=== PATIENT | female | born 2000 | race Caucasian/White ===

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

== ENCOUNTER 2019-04-21 14:36 | Inpatient (IN) ==
[2019-04-21] MEDS ORDERED: BUTORPHANOL TARTRATE 2 MG/1 ML VIAL IVP PRN ×2 (14:46→20:48)
[2019-04-21] MEDS ORDERED: fentaNYL Inj 100 MCG/2 ML VIAL IV PRN (14:46)
[2019-04-21] MEDS ORDERED: Lidocaine 1% 10 MG/ML - 20 ML VIAL SUBCUT PRN (14:46)
[2019-04-21] MEDS ORDERED: Metoclopramide Inj 10 MG/2 ML VIAL IV PRN (14:46)
[2019-04-21] MEDS ORDERED: METHYLERGONOVINE MALEATE 0.2 MG/1 ML VIAL IM PRN (14:46)
[2019-04-21] MEDS ORDERED: OXYTOCIN 10 UNIT/1 ML IM PRN (14:46)
[2019-04-21] MEDS ORDERED: TERBUTALINE SULFATE 1 MG/1 ML SDV SUBCUT PRN (14:46)
[2019-04-21] MEDS ORDERED: CefOXitin Inj 2 GM in Sodium Chloride 0.9% 100 ML IV PRN (14:46)
[2019-04-21] MEDS ORDERED: CITRIC ACID/SODIUM CITRATE 30 ML CUP PO PRN (14:46)
[2019-04-21] MEDS ORDERED: LIDOCAINE HCL 2 % 10 ML JELLY URO-JECT TOPICAL PRN ×2 (14:46→19:55)
[2019-04-21] MEDS ORDERED: Nalbuphine Inj 20 MG/ML Ampule IVP PRN ×2 (14:46→19:55)
[2019-04-21] MEDS ORDERED: FAMOTIDINE 20 MG/2 ML VIAL IVP PRN ×2 (14:46)
[2019-04-21] MEDS ORDERED: LIDOCAINE W/ SODIUM BICARB 0.5 ML SYR SUBD PRN (14:46)
[2019-04-21] MEDS ORDERED: MISOPROSTOL 200 MCG TABLET RECTAL PRN (14:46)
[2019-04-21] MEDS ORDERED: Phenylephrine Inj 50 MCG in Sodium Chloride 0.9% vial 0.5 ML IVP PRN (14:46)
[2019-04-21] MEDS ORDERED: NALOXONE 0.4 MG/1 ML VIAL IVP PRN (14:46)
[2019-04-21] MEDS ORDERED: diphenhydrAMINE 50 MG/1 ML VIAL IVP PRN ×2 (14:46→19:55)
[2019-04-21] MEDS ORDERED: CALCIUM CARBONATE 500 MG (TUMS) CHEWABLE TABLET PO PRN ×2 (14:46→19:55)
[2019-04-21] MEDS ORDERED: Naloxone Inj 0.01 MG in Sodium Chloride 0.9% vial 1 ML IVP PRN (14:46)
[2019-04-21] MEDS ORDERED: ONDANSETRON 4 MG/2 ML VIAL IVP PRN ×2 (14:46→19:55)
[2019-04-21] MEDS ORDERED: Carboprost Inj 250 MCG/ML AMP IM PRN (14:46)
[2019-04-21] MEDS ORDERED: Oxytocin 20 Units + LR 20 UNIT/1,000 ML BAG IV SCH ×2 (15:00→19:55)
[2019-04-21] MEDS ORDERED: LIDOCAINE MPF 2% - 5 ML (20 MG/1 ML) ONE (15:33)
[2019-04-21 15:36] LABS: Hematocrit [HCT] 38.4 % (37.0-47.0); MEAN CORPUSCULAR HGB CONC 33.9 g/dL (33-37); MEAN CORPUSCULAR VOLUME 79.7 FL (81-99); RED BLOOD COUNT 4.82 10^6/uL (4.20-5.40)
[2019-04-21] MEDS: Lactated Ringers-OB Dept 1,000 ML PRIMARY IV SCH ×2 (15:36→16:01)
[2019-04-21] MEDS ORDERED: Fent/Bupiv 2mcg/0.0625% Epid 250 ML ONE (15:43)
[2019-04-21] MEDS ORDERED: Tranexamic Acid 1,000 MG in Sodium Chloride 0.9% 100 ML IV ONE (19:30)
[2019-04-21] MEDS ORDERED: Tranexamic Acid 1,000 MG in Sodium Chloride 0.9% 100 ML IV SCH (19:30)
[2019-04-21] MEDS ORDERED: Lidocaine 1% 10 MG/ML - 20 ML VIAL INTRADERM PRN (19:55)
[2019-04-21] MEDS ORDERED: GLYCERIN/WITCH HAZEL 1 BOX TOPICAL PRN (19:55)
[2019-04-21] MEDS ORDERED: HYDROcodone-APAP 5 MG -325 MG TABLET PO PRN (19:55)
[2019-04-21] MEDS ORDERED: diphenhydrAMINE 25 MG CAPSULE PO PRN (19:55)
[2019-04-21] MEDS ORDERED: DIPH,PERTUSS,TET(ADACEL) VAC/PF 0.5 ML (Tdap) IM ONE (19:55)
[2019-04-21] MEDS ORDERED: BENZOCAINE/MENTHOL SPRAY 56 GM BOTTLE TOPICAL PRN (19:55)
[2019-04-21] MEDS ORDERED: LANOLIN HPA 40 GM TUBE TOPICAL PRN (19:55)
[2019-04-21] MEDS ORDERED: Ondansetron ODT Tab 4 MG TAB PO PRN (19:55)
[2019-04-21] MEDS ORDERED: ACETAMINOPHEN 325 MG TABLET PO PRN (19:55)
[2019-04-21] MEDS ORDERED: METHYLERGONOVINE MALEATE 0.2 MG/1 ML VIAL IM ONE (20:16)
[2019-04-22 04:56] LABS: Hematocrit [HCT] 30.6 % (37.0-47.0); Hemoglobin [HGB] 10.3 g/dL (12.0-16.0); MEAN CORPUSCULAR HGB CONC 33.7 g/dL (33-37); MEAN CORPUSCULAR VOLUME 81.2 FL (81-99); MEAN PLATELET VOLUME 10.4 FL (7.4-12.2); RED BLOOD COUNT 3.77 10^6/uL (4.20-5.40)
[2019-04-22] MEDS ORDERED: DOCUSATE 100 MG CAPSULE PO SCH (09:00)
[2019-04-22] MEDS ORDERED: Prenatal Multivitamin Tab 1 TAB TAB PO SCH (09:00)
[2019-04-22] MEDS: IBUPROFEN 800 MG TABLET PO PRN ×2 (09:19→17:45)
[2019-04-22] MEDS ORDERED: fentaNYL 2 MCG/BUPIVACAINE 0.0625%/NS 0.9% 250 ML BAG EPIDURAL SCH (16:30)
[2019-04-22 22:54] VITALS: O2SAT 98
[2019-04-22 22:57] VITALS: BP 127/70; RESP 16; TEMP 97.6
== END 2019-04-22 21:35 | disposition home or self-care (01) | DRG 807 ==
LOC: OBOP 14:36 → OBIP 14:46
PROVIDERS: ADMIT Obstetrics & Gynecology; ATTEND Family Medicine